=== PATIENT | male | born 1975 | race Two or more races ===

== ENCOUNTER 2017-05-14 14:15 | Emergency (ER) | payer OTHER ==
[~2017-05-14] VITALS: Ht 182.9 cm; Wt 122.5 kg
[2017-05-14 15:22] VITALS: BP 154/94
--- NOTE | 2017-05-14 15:34 | Emergency Room Report ---
History of Present Illness General Chief Complaint: Upper Extremity Injury Present Illness HPI 42 YO male presents to the emergency department complaining of 4/ 10 in severity pain in the right hand as well as the anterior left knee. Patient states he had a fall approximately 8 days ago where he also sustained a open wound to the front of the left kwong. he reports mechanical trip and fall he denies hitting his head he denies loss of consciousness. he states he is up-to- date with vaccinations. he has been using ball tearing cream with minimal relief. he reports mild swelling to the knuckle of the right middle finger. he states that he is [id number]-bglaimro. denies bruises, or instability of the knee. pt. states pain is exacerbated with walking. denies erythema or increased temperature to palpation. Denies numbness tingling or loss of sensation or gross motor movements of the extremities, incontinence of bowel or bladder. Denies CP, Palpitations, LOC, AMS, dizziness, Changes in Vision, Sensation, paresthesias, or a sudden severe headache. Allergies: Coded Allergies: No Known Allergies (Unverified , 05/14/17) Patient History Past Medical History: see triage record Past Surgical History: none Pertinent Family History: none Immunizations: UTD Reviewed Nursing Documentation: PMH: Agreed, PSxH: Agreed Nursing Documentation-PMH Hx Hypertension: Yes Hx Diabetes: Yes Review of Systems All Other Systems: negative except mentioned in HPI Physical Exam Vital Signs Date Time Temp Pulse Resp B/P Pulse Ox O2 Delivery O2 Flow Rate FiO2 05/14/17 14:43 97.9 93 17 154/94 96 Room Air Medical Decision Making PA Attestation Dr. Conway is my supervising Physician whom patient management has been discussed with. Diagnostic Impression: Primary Impression: Contusion of knee, left Qualified Codes: S80.02XA - Contusion of left knee, initial encounter Additional Impressions: Hand contusion Qualified Codes: S60.221A - Contusion of right hand, initial encounter Abrasion Left knee sprain Qualified Codes: S83.92XA - Sprain of unspecified site of left knee, initial encounter ER Course 42 YO male presents to the emergency department complaining of 4/ 10 in severity pain in the right hand as well as the anterior left knee. Patient states he had a fall approximately 8 days ago where he also sustained a open wound to the front of the left kwong. he reports mechanical trip and fall he denies hitting his head he denies loss of consciousness. he states he is up-to- date with vaccinations. he has been using ball tearing cream with minimal relief. he reports mild swelling to the knuckle of the right middle finger. he states that he is [id number]-[id number]. denies bruises, or instability of the knee. pt. states pain is exacerbated with walking. denies erythema or increased temperature to palpation. Denies numbness tingling or loss of sensation or gross motor movements of the extremities, incontinence of bowel or bladder. Denies CP, Palpitations, LOC, AMS, dizziness, Changes in Vision, Sensation, paresthesias, or a sudden severe headache. Ddx considered but are not limited to Fracture, dislocation, contusion, Sprain/ Strain/Spasm, abrasion, septic joint. Vital signs: are WNL, pt. is afebrile H&PE are most consistent with musculoskeletal injury will perform imaging to r/ o fractures/dislocations. no evidence to suggest secondary infection or septic joint. no snuff box ttp. ORDERS: - X-ray Right hand 3 views - negative for fx, Dislocation, or significant soft tissue injury, per preliminary read in ED by Dr. Conway - interpretation is scribed by PA. -- X-ray Left knee 3 views - negative for fx, Dislocation, or significant soft tissue injury, per preliminary read in ED by Dr. Conway - interpretation is scribed by PA. ED INTERVENTIONS: - josephine wrap -bacitracin applied by RN. DISCHARGE: At this time pt. is stable for d/c to home. Will provide printed patient care instructions, and any necessary prescriptions. Care plan and follow up instructions have been discussed with the patient prior to discharge. Last Vital Signs Date Time Temp Pulse Resp B/P Pulse Ox O2 Delivery O2 Flow Rate FiO2 05/14/17 15:22 97.9 90 17 154/94 96 Room Air Disposition: HOME, SELF-CARE Condition: Stable Scripts Bacitracin/Polymyxin B Sulfate (BACITRACIN-POLYMYXIN OINTMENT) 28.35 Gm Oint...g. 1 APPLIC TP BID, #28.3 GM Prov: Barbara Meade P.A. 05/14/17 Ibuprofen* (MOTRIN*) 600 Mg Tablet 600 MG ORAL THREE TIMES A DAY, #30 TAB 0 Refills Prov: Barbara Meade 05/14/17 Patient Instructions: Abrasion, [id number], Contusion, [id number], Knee Sprain, [id number] Additional Instructions: Take medications as directed. Follow up with a Primary Care Provider in 3-5 days, even if your symptoms have resolved. --Please review list of primary care clinics, if you do not already have a primary care provider If symptoms persist MRI imaging may be warranted of the left knee, follow up with a PCP for referral. Return sooner to ED if new symptoms occur, or current symptoms become worse. - Please note that this Emergency Department Report was dictated using [employer] director technology software, occasionally this can lead to erroneous entry secondary to interpretation by the dictation equipment. Barbara Meade May 14, 2017 15:34
[2017-05-14] MEDS ORDERED: IBUPROFEN600 MG ORAL (15:35)
[2017-05-14 15:45] VITALS: BP 150/91
--- NOTE | 2017-05-14 15:45 | Diagnostic Imaging Report ---
Indications: PAIN Technique: 3 views of the right hand Comparison: None Findings: No acute fractures. No dislocations. Joint spaces are preserved. No radiopaque foreign body. Normal mineralization. Impression: No acute process
--- NOTE | 2017-05-14 15:46 | Diagnostic Imaging Report ---
Indication: PAIN Technique: 3 views of the left knee Comparison: None Findings:No acute fractures. No dislocations. Joint spaces are preserved. No suprapatellar effusion. Impression:Negative
[2017-05-14] MEDS ORDERED: BACITRACIN-P28.35 GM TP (16:14)
[2017-05-14] MEDS ORDERED: Bacitracin Oint UD TOPIC ONE (16:14)
== END 2017-05-14 16:17 | disposition home or self-care (01) ==
LOC: EMR 15:09
DX: S80.02XA Contusion of left knee, initial encounter (principal); S60.221A Contusion of right hand, initial encounter; S83.92XA Sprain of unspecified site of left knee, initial encounter; W01.0XXA Fall on same level from slipping, tripping and stumbling without subsequent striking against object, initial encounter; Y93.9 Activity, unspecified; Y92.9 Unspecified place or not applicable; I10 Essential (primary) hypertension; E11.9 Type 2 diabetes mellitus without complications
CPT/HCPCS: 29530